=== PATIENT | male | born 1970 | race Caucasian/White ===

== ENCOUNTER 2017-04-28 22:48 | Emergency (ER) | payer OTHER ==
[~2017-04-28 22:48] MED LIST: ALPRAZOLAM0.5 MG PO; ASPIRIN EC81 MG PO; GLUCOPHAGE1000 MG PO; IBUPROFEN800 MG PO; NEURONTIN 400400 MG PO; OXYCODONE HCL30 MG PO; VALIUM 5 MG TAB5 MG PO
== END 2017-04-29 02:42 | disposition home or self-care (01) ==
LOC: ER1 22:48
DX: L03.116 Cellulitis of left lower limb (principal); E11.9 Type 2 diabetes mellitus without complications; E78.5 Hyperlipidemia, unspecified; I48.91 Unspecified atrial fibrillation; G89.29 Other chronic pain; M54.5 Low back pain; Z79.84 Long term (current) use of oral hypoglycemic drugs; Z88.5 Allergy status to narcotic agent
CPT/HCPCS: 99283

== ENCOUNTER 2021-06-26 18:52 | Emergency (ER) | payer MEDICARE, OTHER ==
[~2021-06-26 18:52] MED LIST changes: +ADMELOG SO100 UNIT/1 SQ; +BASAGLAR K100 UNIT/1 SQ; +CARDIZEM CD240 MG PO; +COREG 3.125M3.125 MG PO; +CRUTCH1 EACH MC; +DIABETA 5 MG TAB5 MG PO; +DIGOX250 MCG PO; +ECOTRIN81 MG PO; +ELIQUIS5 MG PO; -GLUCOPHAGE1000 MG PO; +GLUCOPHAGE500 MG PO; +LIPITOR TAB 2020 MG PO; +LOPRESSOR 25 MG25 MG PO; +NORVASC2.5 MG PO; +OMNICEF 300 MG300 MG PO; -OXYCODONE HCL30 MG PO; +PEPCID20 MG PO; +PRINIVIL20 MG PO; +ROXICODONE15 MG PO; +RYTHMOL TAB 15150 MG PO; +SILVADENE CREAM20 GM TOP; +SYNTHROID25 MCG PO; +VIBRAMYCIN100 MG PO; +VITAMIN D250000 UNIT PO; +ZOFRAN4 MG PO
== END 2021-06-26 19:55 | disposition left against medical advice (07) ==
LOC: ER1 18:52
DX: Z53.21 Procedure and treatment not carried out due to patient leaving prior to being seen by health care provider (principal)

== ENCOUNTER 2021-07-23 21:42 | Observation (INO) | payer MEDICARE, OTHER ==
[~2021-07-23] VITALS: Ht 193 cm; Wt 217.7 kg
[2021-07-23 22:36] LABS: HEMOGLOBIN 14.9 gm/dl (14.0-17.5); RED BLOOD COUNT 5.72 M/UL (4.20-5.50); WHITE BLOOD COUNT 11.5 K/UL (4.5-11.0)
[2021-07-23 23:38] LABS: BUN/CREATININE RATIO 16 (0-10)
[2021-07-25 07:31] LABS: HEMOGLOBIN 15.8 gm/dl (14.0-17.5); RED BLOOD COUNT 6.07 M/UL (4.20-5.50); WHITE BLOOD COUNT 10.3 K/UL (4.5-11.0)
[2021-07-25 07:37] LABS: BUN/CREATININE RATIO 17 (0-10)
[2021-07-26 06:59] LABS: HEMOGLOBIN 16.3 gm/dl (14.0-17.5); RED BLOOD COUNT 6.23 M/UL (4.20-5.50); WHITE BLOOD COUNT 8.5 K/UL (4.5-11.0)
[2021-07-26 07:22] LABS: BUN/CREATININE RATIO 22 (0-10)
[2021-07-26] MEDS ORDERED: FUROSEMIDE40 MG PO (11:50)
[2021-07-26] MEDS ORDERED: K-DUR TAB 20 M20 MEQ PO (11:50)
[2021-07-26] MEDS ORDERED: LISINOPRIL10 MG PO (11:50)
[2021-07-26] MEDS ORDERED: CARVEDILOL25 MG PO (11:50)
[2021-07-26] MEDS ORDERED: ASPIRIN EC81 MG PO (11:50)
== END 2021-07-26 16:05 | disposition home or self-care (01) ==
LOC: ER1 21:42 → CDU 07-24 01:54 → MED SURG 4 07-24 23:12
PROVIDERS: Internal Medicine; ADMIT Internal Medicine
DX: R42 Dizziness and giddiness (principal); E87.1 Hypo-osmolality and hyponatremia; R77.8 Other specified abnormalities of plasma proteins; I11.0 Hypertensive heart disease with heart failure; I50.23 Acute on chronic systolic (congestive) heart failure; G47.33 Obstructive sleep apnea (adult) (pediatric); I48.0 Paroxysmal atrial fibrillation; E03.9 Hypothyroidism, unspecified; K21.9 Gastro-esophageal reflux disease without esophagitis; E11.42 Type 2 diabetes mellitus with diabetic polyneuropathy; I42.9 Cardiomyopathy, unspecified; E66.01 Morbid (severe) obesity due to excess calories; Z68.43 Body mass index [BMI] 50.0-59.9, adult; Z20.822 Contact with and (suspected) exposure to COVID-19; Z86.73 Personal history of transient ischemic attack (TIA), and cerebral infarction without residual deficits; Z91.19 Patient's noncompliance with other medical treatment and regimen; Z86.16 Personal history of COVID-19; Z95.5 Presence of coronary angioplasty implant and graft; Z88.5 Allergy status to narcotic agent; Z91.040 Latex allergy status; Z79.01 Long term (current) use of anticoagulants; Z86.711 Personal history of pulmonary embolism
CPT/HCPCS: ECHO; 36415; 36600; 70450; 70496; 70498; 71045; 80048; 80053; 80061; 80162; 81001; 82550; 82553; 82803; 82962; 83874; 83880; 84439; 84443; 84484; 85025; 87086; 92610; 93005; 93306; 94760; 97161; 97166; 99285; G0378; J2405; Q9957; Q9967; U0002

== ENCOUNTER 2022-05-02 18:41 | Emergency (ER) | payer MEDICARE, OTHER ==
[~2022-05-02 18:41] MED LIST changes: +CARVEDILOL25 MG PO; +FUROSEMIDE40 MG PO; +K-DUR TAB 20 M20 MEQ PO; +LISINOPRIL10 MG PO
[2022-05-02 19:01] LABS: HEMOGLOBIN 16.6 gm/dl (14.0-17.5); RED BLOOD COUNT 5.65 M/UL (4.20-5.50); WHITE BLOOD COUNT 7.7 K/UL (4.5-11.0)
[2022-05-02 19:28] LABS: BUN/CREATININE RATIO 14 (0-10)
== END 2022-05-03 01:55 | disposition home or self-care (01) ==
LOC: ER1 18:41
DX: R07.9 Chest pain, unspecified (principal); I50.9 Heart failure, unspecified; E11.9 Type 2 diabetes mellitus without complications; Z86.711 Personal history of pulmonary embolism; Z86.73 Personal history of transient ischemic attack (TIA), and cerebral infarction without residual deficits
CPT/HCPCS: 70450; 71045; 80053; 82550; 82553; 83880; 84484; 85025; 93005; 99285; Q9967

== ENCOUNTER 2022-06-22 09:30 | Inpatient (IN) | payer MEDICARE, OTHER ==
[~2022-06-22] VITALS: Ht 193 cm; Wt 166.0 kg
[~2022-06-22 09:30] MED LIST changes: -LIPITOR TAB 2020 MG PO; +LIPITOR40 MG PO
[2022-06-22 10:09] LABS: RED BLOOD COUNT 5.38 M/UL (4.20-5.50)
[2022-06-22 10:46] LABS: BUN/CREATININE RATIO 17 (0-10)
[2022-06-22] MEDS ORDERED: POTASSIUM CHLO20 ME2 PO (13:45)
[2022-06-22] MEDS ORDERED: FUROSEMIDE20 MG PO (13:45)
[2022-06-22] MEDS ORDERED: LISINOPRIL20 MG PO (13:46)
[2022-06-22] MEDS ORDERED: IBUPROFEN800 MG PO (13:46)
[2022-06-22] MEDS ORDERED: TIZANIDINE HCL4 MG PO (13:46)
[2022-06-22] MEDS ORDERED: NALTREXONE HCL50 MG PO (13:47)
[2022-06-22] MEDS ORDERED: ALLERGY25 MG PO (13:47)
[2022-06-22] MEDS ORDERED: TRIPLE ANTIBIO1 EACH TOP (13:47)
[2022-06-22] MEDS ORDERED: ROPINIROLE HCL0.5 MG PO (13:48)
[2022-06-22] MEDS ORDERED: MELATONIN5 M2 PO (13:48)
[2022-06-22] MEDS ORDERED: NALOXONE HCL4 MG (13:48)
[2022-06-22] MEDS ORDERED: PACERONE200 MG PO (13:49)
[2022-06-22] MEDS ORDERED: DILTIAZEM 24HR240 M1 PO (13:49)
[2022-06-22] MEDS ORDERED: NEXIUM40 MG PO (13:49)
[2022-06-23 04:38] LABS: HEMOGLOBIN 14.5 gm/dl (14.0-17.5); RED BLOOD COUNT 4.88 M/UL (4.20-5.50); WHITE BLOOD COUNT 7.5 K/UL (4.5-11.0)
[2022-06-23 05:01] LABS: BUN/CREATININE RATIO 19 (0-10)
[2022-06-24 03:37] LABS: BUN/CREATININE RATIO 26 (0-10)
[2022-06-25 05:36] LABS: BUN/CREATININE RATIO 25 (0-10)
[2022-06-26] MEDS ORDERED: BACTRIM DS TAB1 EACH PO (10:25)
[2022-06-26] MEDS ORDERED: PHENERGAN 12.12.5 M1 PO (10:30)
== END 2022-06-26 17:39 | disposition home or self-care (01) | DRG 638 ==
LOC: ER1 09:30 → PROG CARE 11:45 → CDU 11:45 → PROG CARE 12:57 → M/S 06-24 14:09
PROVIDERS: Emergency Medicine; Physician Assistant Medical; ADMIT Internal Medicine Infectious Disease
DX: E11.69 Type 2 diabetes mellitus with other specified complication (principal); L03.116 Cellulitis of left lower limb; M86.8X7 Other osteomyelitis, ankle and foot; Z68.41 Body mass index [BMI] 40.0-44.9, adult; E11.621 Type 2 diabetes mellitus with foot ulcer; Z20.822 Contact with and (suspected) exposure to COVID-19; B95.62 Methicillin resistant Staphylococcus aureus infection as the cause of diseases classified elsewhere; G47.33 Obstructive sleep apnea (adult) (pediatric); E66.01 Morbid (severe) obesity due to excess calories; E03.9 Hypothyroidism, unspecified; I25.10 Atherosclerotic heart disease of native coronary artery without angina pectoris; K21.9 Gastro-esophageal reflux disease without esophagitis; E11.628 Type 2 diabetes mellitus with other skin complications; I10 Essential (primary) hypertension; I48.91 Unspecified atrial fibrillation; Z79.4 Long term (current) use of insulin; Z79.01 Long term (current) use of anticoagulants; Z86.711 Personal history of pulmonary embolism; Z80.1 Family history of malignant neoplasm of trachea, bronchus and lung
CPT/HCPCS: 36415; 71045; 73620; 73700; 80048; 80053; 80202; 81001; 82962; 83605; 83690; 83735; 85025; 85027; 86140; 87040; 87070; 87077; 87186; 87205; 93005; 96374; 96375; 99285; J1160; J1170; J2185; J2405; J2543; J3370; J3475; J7050; J7070

== ENCOUNTER 2022-07-05 14:02 | Emergency (ER) | payer MEDICARE, OTHER ==
[~2022-07-05] VITALS: Ht 193 cm; Wt 166.0 kg
[~2022-07-05 14:02] MED LIST changes: +ALLERGY25 MG PO; +BACTRIM DS TAB1 EACH PO; +DILTIAZEM 24HR240 M1 PO; +FUROSEMIDE20 MG PO; +LISINOPRIL20 MG PO; +MELATONIN5 M2 PO; +NALOXONE HCL4 MG; +NALTREXONE HCL50 MG PO; +NEXIUM40 MG PO; +PACERONE200 MG PO; +PHENERGAN 12.12.5 M1 PO; +POTASSIUM CHLO20 ME2 PO; +ROPINIROLE HCL0.5 MG PO; +TIZANIDINE HCL4 MG PO; +TRIPLE ANTIBIO1 EACH TOP
[2022-07-05 15:19] LABS: HEMOGLOBIN 14.6 gm/dl (14.0-17.5); RED BLOOD COUNT 4.84 M/UL (4.20-5.50); WHITE BLOOD COUNT 9.8 K/UL (4.5-11.0)
[2022-07-05 15:31] LABS: BUN/CREATININE RATIO 23 (0-10)
== END 2022-07-06 02:30 | disposition short-term general hospital (02) ==
LOC: ER1 14:02
PROVIDERS: Student in an Organized Health Care Education/Training Program
DX: E11.69 Type 2 diabetes mellitus with other specified complication (principal); M86.9 Osteomyelitis, unspecified; L03.116 Cellulitis of left lower limb; I10 Essential (primary) hypertension; I48.91 Unspecified atrial fibrillation
CPT/HCPCS: 73630; 80053; 85025; 85610; 85652; 85730; 86140; 96374; 96375; 96376; 99284; J1885; J2270; J2405; J2543; J3370; J7070